=== PATIENT | male | born 1950 | race Caucasian/White ===

== ENCOUNTER → 2022-04-02 | Outpatient (CLI) | payer MEDICARE ==
[~2022-04-02] MED LIST: ASPIRIN81 MG PO; BENICAR HCT 401 EAC1 PO; CRESTOR40 MG PO; FINASTERIDE5 MG PO; FLOMAX 0.4 MG0.4 MG PO; FLUCONAZOLE200 MG PO; JARDIANCE10 MG PO; LEVOTHYROXINE88 MCG PO; METFORMIN HCL1000 MG PO; MYCOSTATIN CREA15 GM TOP; NORVASC 5 MG TAB5 MG PO; PANTOPRAZOLE SO40 MG PO
== END ==
LOC: EROP 15:40
DX: Z53.9 Procedure and treatment not carried out, unspecified reason (principal)
CPT/HCPCS: M0222; Q0222